=== PATIENT | male | born 1985 | race African-American/Black ===

== ENCOUNTER 2024-03-10 22:25 | Emergency (ER) | payer SELFPAY ==
[2024-03-10] MEDS ORDERED: SODIUM CHLORIDE 0.9% 1,000 ML IV ONE (22:35)
[2024-03-10] MEDS ORDERED: KETOROLAC TROMETHAMINE 30 MG/ML SDV IV ONE (22:35)
[2024-03-10] MEDS ORDERED: ACETAMINOPHEN 500 MG TAB PO ONE (22:35)
[2024-03-10] MEDS ORDERED: DEXAMETHASONE SOD. PHOSPHATE 10 MG/ML VIAL IV ONE (22:35)
[2024-03-10] MEDS ORDERED: DiphenhydrAMINE HCL 50 MG/ML SDV IV ONE (22:35)
[2024-03-10] MEDS ORDERED: PROMETHAZINE HCL 25 MG/ML AMP IV ONE (22:35)
[2024-03-10 22:54] LABS: BASO% 0.3 % (0-3); HEMOGLOBIN 13.5 g/dl (14.0-18.0); IMMATURE GRANULOCYTES 0.2 % (0.0-5.0); LYMPH% 13.9 % (15-41); MEAN CELL VOLUME 68.9 fL CALC (80.0-100.0); MEAN CORPUSCULAR HGB 22.7 pG CALC (26.0-32.0); MEAN CORPUSCULAR HGB CONC 32.9 g/dL CAL (32.0-36.0); MONO% 5.2 % (2-13); NEUT# 9.06 thou/uL (1.82-7.42); NEUT% 80.4 % (42-76); RED BLOOD COUNT 5.95 mill/uL (4.70-6.10); RED CELL DISTRI WIDTH 17.3 % (11.5-15.5)
[2024-03-10 23:05] VITALS: BP 158/99
[2024-03-10 23:10] LABS: ALBUMIN 4.3 g/dL (3.2-5.0); BILIRUBIN, TOTAL 0.4 mg/dL (0.2-1.3); POTASSIUM 4.3 mmol/l (3.5-5.1); TOTAL PROTEIN 7.2 g/dL (6.3-8.2)
[2024-03-10 23:28] VITALS: BP 164/119
[2024-03-10 23:39] LABS: URINE BILIRUBIN - DIPSTICK Negative (NEGATIVE); URINE BLOOD DIPSTICK Negative (NEGATIVE); URINE GLUCOSE - DIPSTICK Negative (NEGATIVE); URINE KETONE Negative (NEGATIVE); URINE LEUK ESTERASE Negative (NEGATIVE); URINE NITRITE - DIPSTICK Negative (Negative); URINE PH 7.5 (4.5-8.0); URINE PROTEIN - DIPSTICK Negative (NEG-TRACE); URINE UROBILINOGEN - DIPSTICK 0.2 E.U./dL (0.2)
[2024-03-10 23:44] LABS: URINE COLOR Yellow
[2024-03-11] MEDS ORDERED: IMITREX100 M1 PO (00:07)
[2024-03-11 00:19] VITALS: BP 154/89
== END 2024-03-11 00:19 | disposition home or self-care (01) | DRG 103 ==
LOC: ED 22:25
PROVIDERS: Family Medicine
DX: R51.9 Headache, unspecified (principal); Z20.822 Contact with and (suspected) exposure to COVID-19

== ENCOUNTER 2024-08-08 14:21 | Emergency (ER) | payer SELFPAY ==
[~2024-08-08] VITALS: Ht 177.8 cm; Wt 82.7 kg
[2024-08-08] VITALS (11 sets, daily range): BP systolic 112–129; BP diastolic 65–75
[~2024-08-08 14:21] MED LIST: IMITREX100 M1 PO
[2024-08-08 15:00] LABS: BASO% 0.3 % (0-3); EOS% 1.2 % (0-8); HEMATOCRIT 32.1 % (39.0-50.0); HEMOGLOBIN 10.3 g/dl (14.0-18.0); IMMATURE GRANULOCYTES 0.4 % (0.0-5.0); LYMPH% 35.8 % (15-41); MEAN CELL VOLUME 70.9 fL CALC (80.0-100.0); MEAN CORPUSCULAR HGB 22.7 pG CALC (26.0-32.0); MEAN CORPUSCULAR HGB CONC 32.1 g/dL CAL (32.0-36.0); MONO% 8.8 % (2-13); NEUT# 3.59 thou/uL (1.82-7.42); NEUT% 53.5 % (42-76); RED BLOOD COUNT 4.53 mill/uL (4.70-6.10); RED CELL DISTRI WIDTH 16.4 % (11.5-15.5)
[2024-08-08 15:10] LABS: ALKALINE PHOSPHATASE 57 u/l (38-126); ANION GAP 7 (6-22 (CALC)); BUN 20 mg/dL (9-20); BUN/CREATININE RATIO 18 (12-20 (CALC)); CARBON DIOXIDE 30 mmol/l (22-30); CHLORIDE 106 mmol/l (95-108); CREATININE 1.1 mg/dL (0.7-1.3); ESTIMATED GFR 87 ML/MIN (>=90 (CALC)); POTASSIUM 3.7 mmol/l (3.5-5.1); SODIUM 140 mmol/l (137-146)
[2024-08-08 15:11] LABS: ALBUMIN 3.3 g/dL (3.2-5.0); BILIRUBIN, TOTAL 0.2 mg/dL (0.2-1.3); SGOT/AST 55 u/l (17-59)
[2024-08-08] MEDS ORDERED: LASIX20 MG PO (16:10)
== END 2024-08-08 16:41 | disposition home or self-care (01) | DRG 293 ==
LOC: ED 14:21
PROVIDERS: Family Medicine
DX: I50.9 Heart failure, unspecified (principal); D64.9 Anemia, unspecified; Z72.0 Tobacco use